=== PATIENT | female | born 1985 | race Hispanic/Latino ===

== ENCOUNTER 2017-01-28 13:01 | Emergency (ER) | payer BC ==
--- NOTE | 2017-01-28 13:42 | RAD ---
CHEST PA AND LATERAL: HISTORY: A 31-year-old female with cough and congestion on and off for 1 month. FINDINGS: Heart size is normal. The lungs are clear. IMPRESSION: No acute intrathoracic disease. No evidence of pneumonia. POS: OFF
== END 2017-01-28 16:17 | disposition left against medical advice (07) ==
LOC: ERS 13:01
DX: Z53.21 Procedure and treatment not carried out due to patient leaving prior to being seen by health care provider (principal)
CPT/HCPCS: 71020

== ENCOUNTER 2017-04-15 10:38 | Outpatient (CLI) | payer OTHER | END 2017-04-15 10:39 | disposition home or self-care (01) | LOC: BICULT 10:38 | PROVIDERS: ATTEND Family Medicine | DX: Z34.92 Encounter for supervision of normal pregnancy, unspecified, second trimester (principal); Z3A.18 18 weeks gestation of pregnancy | CPT/HCPCS: 76805 ==

== ENCOUNTER 2017-08-17 00:12 | Day surgery (SDC) | payer OTHER ==
[2017-08-17 00:54] VITALS: BMI 32.0
--- NOTE | 2017-08-17 01:20 | PDOC.EVN ---
Event Note - Event Note Event Note: 08/17/17 @ 0110: Patient seen in L&D Triage in Bed A Reason for eval: home BPs were elevated at 150s/100-110 per her taking them PLEASE NOTE THAT PATIENT HAS A HANDWRITTEN H&P IN THE RECORD, THIS NOTE IS SECONDARY. HPI: in Brief, 32 yo HF (SVDs) El Ab x 1, SAB x 1 at 35 weks and 6 days who took her BP at home and was elevated. No real CTXs, no LOF, no VB. Occassional BUITRAGO, no RUQ pain, no visual changes. Review of systems: complete ROS completed and as per HPI. PMHX: neg Surg: D&C x 2 Ob Hx: No CS HX PHYSICAL: Highest bp here 144/93 while I was at bedside. Afebrile. Ut soft, nt, no contractions No VB or evidence LOF Nonstress test: cat 1 Naper: rare contractions (mild) Assessment and plan: Mild PIH by pressures, at 35 weeks 6 days. 1. Check labs 2. Check Up/Cr ratio 3. 2 hour obs 4. No evidence severe criteria at this time ACOG PIH definition and guidelines reviewed with her. ACOG recommends delivery at 37 weeks unless severe criteria. Q&A done.
[2017-08-17 01:48] LABS: Hemoglobin 10.9 g/dL (12.0-16.0); Mean Corpuscular HGB CONC 35.1 g/dL (32.0-36.0); Mean Corpuscular Hemoglobin 29.8 pg (27.0-31.0); Mean Corpuscular Volume 84.9 fL (78.0-98.0); Mean Platelet Volume 9.9 fL (7.4-10.4); Platelet Count 197 thou/uL (130-400); RBC Distribution Width 11.8 % (11.5-14.5); Red Blood Cell (RBC) Count 3.67 mill/uL (4.20-5.40); White Blood Cell (WBC) Count 10.1 thou/uL (4.8-10.8)
[2017-08-17 02:05] LABS: Creatinine, Urine 117.38 mg/dL (47-110)
[2017-08-17 02:07] LABS: ALT (SGPT) 9 U/L (8-55); AST (SGOT) 13 U/L (5-34); Albumin 3.1 g/dL (3.5-5.0); Alkaline Phosphatase 228 U/L (40-150); Anion Gap 15 mmol/L (10-20); BUN (Urea Nitrogen) 8 mg/dL (7.0-18.7); Bilirubin, Total 0.4 mg/dL (0.2-1.2); Calc. Creatinine Clearance 138 mL/min (70-130); Calcium 9.5 mg/dL (7.8-10.44); Carbon Dioxide 19 mmol/L (22-29); Chloride 107 mmol/L (98-107); Estimated GFR-MDRD Greater than 90; Globulin 3.2 g/dL (2.4-3.5); Glucose 73 mg/dL (70-105); Protein, Total 6.3 g/dL (6.0-8.3); Sodium 137 mmol/L (136-145)
== END 2017-08-17 03:03 | disposition home or self-care (01) ==
LOC: L&D/OP 00:12
PROVIDERS: ATTEND Family Medicine
DX: O13.3 Gestational [pregnancy-induced] hypertension without significant proteinuria, third trimester (principal); Z3A.35 35 weeks gestation of pregnancy; Z79.899 Other long term (current) drug therapy; Z88.8 Allergy status to other drugs, medicaments and biological substances
CPT/HCPCS: 36415; 51701; 80053; 82570; 84156; 85027; 99283

== ENCOUNTER 2017-08-20 10:55 | Day surgery (SDC) | payer OTHER ==
[2017-08-20 11:34] VITALS: BP 137/87; TEMP 98.1; BMI 32.7
[2017-08-20 12:26] LABS: #Eosinphils 0.2 thou/uL (0.0-0.7); #Lymphocytes 1.7 thou/uL (1.20-3.40); #Monocytes 0.3 thou/uL (0.11-0.59); #Neutrophils 5.3 thou/uL (1.40-6.50); %Basophils 0.5 % (0.0-1.0); %Eosinophils 2.1 % (0.0-10.0); %Lymphocytes 23.1 % (21.0-51.0); %Monocytes 4.3 % (0.0-10.0); %Neutrophils 69.9 % (42.0-75.0); Hemoglobin 10.3 g/dL (12.0-16.0); Mean Corpuscular HGB CONC 34.2 g/dL (32.0-36.0); Mean Corpuscular Volume 84.9 fL (78.0-98.0); Mean Platelet Volume 10.8 fL (7.4-10.4); Platelet Count 178 thou/uL (130-400); RBC Distribution Width 11.7 % (11.5-14.5); Red Blood Cell (RBC) Count 3.54 mill/uL (4.20-5.40); White Blood Cell (WBC) Count 7.5 thou/uL (4.8-10.8)
[2017-08-20 12:44] LABS: ALT (SGPT) 8 U/L (8-55); AST (SGOT) 15 U/L (5-34); Albumin 2.8 g/dL (3.5-5.0); Alkaline Phosphatase 232 U/L (40-150); Anion Gap 13 mmol/L (10-20); BUN (Urea Nitrogen) 12 mg/dL (7.0-18.7); Bilirubin, Total 0.4 mg/dL (0.2-1.2); Calc. Creatinine Clearance 145 mL/min (70-130); Calcium 8.7 mg/dL (7.8-10.44); Carbon Dioxide 18 mmol/L (22-29); Chloride 106 mmol/L (98-107); Estimated GFR-MDRD Greater than 90; Globulin 2.7 g/dL (2.4-3.5); Glucose 123 mg/dL (70-105); Potassium 3.8 mmol/L (3.5-5.1); Protein, Total 5.5 g/dL (6.0-8.3); Sodium 133 mmol/L (136-145)
[2017-08-20 12:56] LABS: Creatinine, Urine 88.57 mg/dL (47-110)
== END 2017-08-20 14:00 | disposition home or self-care (01) ==
LOC: L&D/OP 10:55
PROVIDERS: ATTEND Family Medicine
DX: O16.9 Unspecified maternal hypertension, unspecified trimester (principal); Z79.899 Other long term (current) drug therapy; Z88.8 Allergy status to other drugs, medicaments and biological substances
CPT/HCPCS: 59025; 80053; 82570; 84156; 85025; 99284

== ENCOUNTER 2017-08-23 11:04 | Day surgery (SDC) | payer OTHER ==
[2017-08-23 11:32] VITALS: BMI 32.7
[2017-08-23 11:34] VITALS: BP 141/84; TEMP 98.4
[2017-08-23] MEDS ORDERED: Betamet Acet/Betamet Na Ph 30 MG/5 ML VIAL IM SCH (12:00)
== END 2017-08-23 12:28 | disposition home or self-care (01) ==
LOC: L&D/OP 11:04
PROVIDERS: ATTEND Family Medicine
DX: O60.03 Preterm labor without delivery, third trimester (principal); O09.213 Supervision of pregnancy with history of pre-term labor, third trimester; O99.343 Other mental disorders complicating pregnancy, third trimester; F41.9 Anxiety disorder, unspecified; F31.9 Bipolar disorder, unspecified; Z79.899 Other long term (current) drug therapy; Z88.6 Allergy status to analgesic agent; Z88.8 Allergy status to other drugs, medicaments and biological substances
CPT/HCPCS: 84156; 96372; 99282

== ENCOUNTER 2017-08-26 20:35 | Inpatient (IN) | payer OTHER ==
[~2017-08-26 20:35] MED LIST: Bupivacaine/Epinephrine 0.25% 30 ML VIAL ONE; Lidocaine 2% MPF 10 ML AMP (For Epidural Use) ONE
[2017-08-26 20:56] VITALS: BMI 32.9
[2017-08-26] MEDS ORDERED: Butorphanol Tartrate 1 MG/ML VIAL SLOW IVP PRN (20:56)
[2017-08-26] MEDS ORDERED: Ondansetron HCl/PF 4 MG/2 ML Vial IVP PRN (20:56)
[2017-08-26] MEDS ORDERED: Zolpidem Tartrate 5 MG TAB PO PRN (20:56)
[2017-08-26] MEDS ORDERED: Acetaminophen 500 MG TAB PO PRN (20:56)
[2017-08-26] MEDS ORDERED: Lactated Ringer's 1,000 ML IV PRN (20:58)
[2017-08-26] MEDS ORDERED: Misoprostol 100 MCG TAB ONE (21:19)
[2017-08-26] MEDS: Lactated Ringer's 1,000 ML IV SCH (21:27)
[2017-08-26 21:29] LABS: Hemoglobin 9.8 g/dL (12.0-16.0); Mean Corpuscular HGB CONC 35.2 g/dL (32.0-36.0); Mean Corpuscular Hemoglobin 29.3 pg (27.0-31.0); Mean Corpuscular Volume 83.3 fL (78.0-98.0); Mean Platelet Volume 10.4 fL (7.4-10.4); Platelet Count 194 thou/uL (130-400); Red Blood Cell (RBC) Count 3.34 mill/uL (4.20-5.40); White Blood Cell (WBC) Count 10.5 thou/uL (4.8-10.8)
[2017-08-26] MEDS ORDERED: NS w/ Oxytocin 10 units 500 ML IV SCH ×2 (21:30)
[2017-08-26] MEDS ORDERED: Misoprostol 100 MCG TAB VAG SCH ×2 (21:30)
[2017-08-26] MEDS ORDERED: Misoprostol 100 MCG TAB VAG PRN (21:41)
[2017-08-26 21:48] LABS: ALT (SGPT) 9 U/L (8-55); AST (SGOT) 14 U/L (5-34); Alkaline Phosphatase 240 U/L (40-150); Anion Gap 14 mmol/L (10-20); BUN (Urea Nitrogen) 12 mg/dL (7.0-18.7); Bilirubin, Total 0.3 mg/dL (0.2-1.2); Calc. Creatinine Clearance 131 mL/min (70-130); Calcium 9.4 mg/dL (7.8-10.44); Carbon Dioxide 20 mmol/L (22-29); Chloride 106 mmol/L (98-107); Estimated GFR-MDRD 85; Globulin 3.1 g/dL (2.4-3.5); Glucose 109 mg/dL (70-105); Potassium 3.4 mmol/L (3.5-5.1); Protein, Total 6.1 g/dL (6.0-8.3); Sodium 137 mmol/L (136-145)
[2017-08-26 22:16] LABS: Syphilis Antibody Nonreactive (Nonreactive); Syphilis Antibody Index 0.02 S/CO (<1.00 Non-Reactive)
[2017-08-26 22:29] LABS: Creatinine, Urine 84.81 mg/dL (47-110)
[2017-08-26 23:05] LABS: HBSAg Index 0.21 S/CO (0-0.99); Hep B Surf Ag Non-Reactive S/CO (NonReactive)
[2017-08-27] MEDS ORDERED: DISCONTINUE ALL PREVIOUS NARCOTICS FS SCH (03:30)
[2017-08-27] MEDS ORDERED: Bupivacaine 0.75% 13.4 ML, fentaNYL Citrate/PF 400 MCG in Sodium Chloride 0.9% 78.6 ML EPIDURAL SCH (03:30)
[2017-08-27] MEDS ORDERED: Communication Order-Pharmacy FS SCH (04:15)
[2017-08-27] MEDS ORDERED: ePHEDrine/0.9% NaCl/PF SYRINGE 50 mg/10 ml SLOW IVP PRN (04:15)
[2017-08-27] MEDS ORDERED: diphenhydrAMINE 50 MG/ML VIAL IVP PRN (04:15)
[2017-08-27] MEDS ORDERED: Lactated Ringer's 500 ML IV PRN (04:15)
[2017-08-27] MEDS ORDERED: Naloxone HCl 0.4 mg/ml Vial IVP PRN ×2 (04:15)
[2017-08-27] MEDS ORDERED: Ondansetron HCl/PF 4 MG/2 ML Vial IVP PRN (04:15)
[2017-08-27] MEDS ORDERED: Eucerin (Mineral Oil/Petrolatum,White) 30 gm Jar TOP PRN (04:15)
[2017-08-27] MEDS ORDERED: Acetaminophen 325 MG TAB PO PRN (04:15)
[2017-08-27] MEDS: Lactated Ringer's 1,000 ML IV SCH ×2 (05:30→07:28)
[2017-08-27] MEDS ORDERED: Lidocaine 1% (PF) 30 ML VIAL ONE (08:10)
[2017-08-27] MEDS: NS / Oxytocin 40 units/1000ml 1,000 ML ONE ×2 (08:20→09:41)
[2017-08-27] MEDS ORDERED: NS / Oxytocin 40 units/1000ml 1,000 ML ONE (09:15)
[2017-08-27] MEDS ORDERED: Benzocaine/Menthol 20-0.5% 60 ML CAN TOP PRN (10:24)
[2017-08-27] MEDS ORDERED: Milk Of Magnesia 30 ML UDCUP PO PRN (10:24)
[2017-08-27] MEDS ORDERED: Bisacodyl 10 MG SUPP PR PRN (10:24)
[2017-08-27] MEDS ORDERED: Adacel (T-DAP) 0.5 ML VIAL IM ONE (10:24)
[2017-08-27] MEDS ORDERED: NS / Oxytocin 40 units/1000ml 1,000 ML IV SCH (10:30)
[2017-08-27] MEDS: HYDROcodone/Acetaminophen 5/325 mg Tablet PO PRN ×2 (10:44→17:41)
[2017-08-27] MEDS ORDERED: Ibuprofen 800 MG TAB PO SCH (11:00)
[2017-08-27] MEDS: Measles/Mumps/Rubella 10 MCG/0.5 ML VIAL SC ONE (11:56)
[2017-08-27] MEDS: Ibuprofen 800 MG TAB PO SCH ×2 (14:10→21:25)
[2017-08-27] MEDS: Ferrous Sulfate 325 MG TAB PO SCH (17:41)
[2017-08-27] MEDS: Docusate Calcium (SURFAK) 240 MG CAP PO SCH (21:25)
[2017-08-28] MEDS: HYDROcodone/Acetaminophen 5/325 mg Tablet PO PRN ×2 (01:09→10:59)
[2017-08-28] MEDS: Ibuprofen 800 MG TAB PO SCH ×2 (05:16→14:52)
--- NOTE | 2017-08-28 08:34 | PDOC.PP ---
Post Progress Note Post Day #: 1 Subjective: No c/o. Breast and bottle. Lochia normal. No BUITRAGO. No abdominal pain. No vision changes. PO intake tolerated: yes Flatus: yes Ambulation: yes Vital Signs (12 hours) Temp Pulse Resp BP BP 08/28/17 07:55 98.4 F 77 20 145/92 H 08/28/17 05:16 98.5 F 80 18 135/77 08/28/17 00:50 98.7 F 89 20 139/92 H 08/27/17 21:23 91 154/84 H Weight Weight 180 lb - Physical Examination General: NAD Cardiovascular: no m/r/g, RRR Respiratory: clear to auscultation bilaterally, non-labored breathing Abdominal: + bowel sounds, lochia, no distention, appropriately TTP Result Diagrams: 08/26/17 21:02 08/26/17 21:02 Additional Labs: Post Labs Blood Type A POSITIVE 08/26/17 21:02 Hep Bs Antigen Non-Reactive S/CO (NonReactive) 08/26/17 21:02 (1) Pre-eclampsia Code(s): O14.90 - UNSPECIFIED PRE-ECLAMPSIA, UNSPECIFIED TRIMESTER Status: Acute (2) Vaginal delivery Code(s): O80 - ENCOUNTER FOR FULL-TERM UNCOMPLICATED DELIVERY Status: Acute - Assessment/Plan PPD #1 BP remains mildly elevated Start Toprol - first dose here prior to D/C D/C home this PM if BP OK F/U in 2 days with me
[2017-08-28] MEDS ORDERED: Prenatal Vitamin 1 TAB PO SCH (09:00)
[2017-08-28] MEDS: Docusate Calcium (SURFAK) 240 MG CAP PO SCH (09:02)
[2017-08-28] MEDS: Ferrous Sulfate 325 MG TAB PO SCH (09:03)
[2017-08-28 11:22] VITALS: TEMP 98.5
[2017-08-28 15:07] VITALS: BP 147/89
[2017-08-28] MEDS: Measles/Mumps/Rubella 10 MCG/0.5 ML VIAL SC ONE (16:47)
== END 2017-08-28 16:52 | disposition home or self-care (01) | DRG 775 ==
LOC: L&D 20:35 → 3SW 08-27 11:41
PROVIDERS: ADMIT Family Medicine; ATTEND Family Medicine
PROC: 10E0XZZ Delivery of Products of Conception, External Approach (ICD-10-PCS; principal; 2017-08-27)
PROC: 3E0P7VZ Introduction of Hormone into Female Reproductive, Via Natural or Artificial Opening (ICD-10-PCS; 2017-08-27)
PROC: 3E033VJ Introduction of Other Hormone into Peripheral Vein, Percutaneous Approach (ICD-10-PCS; 2017-08-27)
PROC: 3E0234Z Introduction of Serum, Toxoid and Vaccine into Muscle, Percutaneous Approach (ICD-10-PCS; 2017-08-28)
DX: O14.94 Unspecified pre-eclampsia, complicating childbirth (principal); Z37.0 Single live birth; Z23 Encounter for immunization; Z88.8 Allergy status to other drugs, medicaments and biological substances; Z88.6 Allergy status to analgesic agent; Z3A.37 37 weeks gestation of pregnancy
CPT/HCPCS: 36415; 51702; 80053; 82570; 84156; 85027; 86780; 86850; 86900; 86901; 87340; 90707; J1200; J2001; J3010; J7050

== ENCOUNTER 2020-01-25 01:47 | Emergency (ER) | payer OTHER ==
[2020-01-25 03:28] LABS: Bacteria/HPF None Seen HPF (None Seen); Bilirubin Negative (Negative); Blood, Urine 1+ (Negative); Clarity Clear (Clear); Glucose, Urine (Dipstick) Normal (Negative); Ketone, Urine Negative (Negative); Leukocyte Negative Leu/uL (Negative); Nitrite Negative (Negative); Pregnancy Test - Urine (BHCG) Negative (Negative); Pregu Control Background? CLEAR/WHITE (CLR/WHITE); Pregu Control Bar Appear? YES (CONTROL BAR); Protein, Urine (Dipstick) 20 mg/dL (Neg-Trace); Specific Gravity 1.034 (1.002-1.036); Specific Gravity, Urine 1.034 (1.002-1.036); Squamous Epithelial 0-3 HPF (0-3); WBC/HPF 0-3 HPF (0-3); pH, Urine 6.5 (5.0-9.0)
== END 2020-01-25 03:42 | disposition home or self-care (01) ==
LOC: ERS 01:47
DX: N93.8 Other specified abnormal uterine and vaginal bleeding (principal); D64.9 Anemia, unspecified; J45.909 Unspecified asthma, uncomplicated; F41.9 Anxiety disorder, unspecified; F31.9 Bipolar disorder, unspecified; F90.9 Attention-deficit hyperactivity disorder, unspecified type; Z87.891 Personal history of nicotine dependence
CPT/HCPCS: 81003; 81015; 81025; 99284

== ENCOUNTER 2021-09-03 00:18 | Emergency (ER) | payer OTHER | END 2021-09-03 03:56 | disposition left against medical advice (07) | LOC: ERS 00:18 | DX: M79.662 Pain in left lower leg (principal); M79.661 Pain in right lower leg | CPT/HCPCS: 93970 ==

== ENCOUNTER 2022-05-30 08:05 | Outpatient (CLI) | payer OTHER | END 2022-05-30 08:06 | disposition home or self-care (01) | LOC: TBSIIMAG 08:05 | PROVIDERS: ATTEND Anesthesiology Pain Medicine | DX: M54.12 Radiculopathy, cervical region (principal); M54.16 Radiculopathy, lumbar region; M47.812 Spondylosis without myelopathy or radiculopathy, cervical region; M47.816 Spondylosis without myelopathy or radiculopathy, lumbar region | CPT/HCPCS: 72100; 72141; 72148 ==